=== PATIENT | female | born 1960 | race Caucasian/White ===

== ENCOUNTER 2019-03-20 12:43 | Emergency (ER) | payer OTHER ==
[~2019-03-20] VITALS: Wt 102.0 kg
[2019-03-20] MEDS ORDERED: SOD CHLORIDE 0.9% 1,000 ML IV STA (13:30)
[2019-03-20] MEDS ORDERED: ONDANSETRON 4 MG INJ IV STA (13:30)
--- NOTE | 2019-03-20 14:09 | ERD ---
ER Documentation Chief Complaint Chief Complaint AP WITH VOMITING X 25 DAYS, INTERMITTENT HPI 59-year-old female with a history of diabetes and hypertension presenting with intermittent cramping abdominal pain that has been going on for about 1 month with associated nonbloody and nonbilious vomiting as well as nonbloody diarrhea. Her symptoms are intermittent, unable to quantify. No associated fevers or chills. Currently she is denying any pain. She denies any dysuria, chest pain, shortness of breath. She is currently living in a homeless half-way. Once she moved into the [facility] [place] about 1 month ago is when her symptoms started. She does not think anyone else has similar symptoms. ROS All systems reviewed and are negative except as per history of present illness. Medications Home Meds Reported Medications Benazepril-Hydrochlorothiazide (Benazepril-Hydrochlorothiazide) 20-25 Mg Tablet, 1 TAB PO DAILY, #30 TAB 03/20/19 Lorazepam* (Lorazepam*) 1 Mg Tablet, 1 MG PO BID PRN for ANXIETY, #30 TAB 03/20/19 Escitalopram Oxalate* (Escitalopram Oxalate*) 20 Mg Tablet, 20 MG PO DAILY, #30 TAB 03/20/19 Atorvastatin* (Atorvastatin*) 40 Mg Tablet, 40 MG PO QHS, #30 TAB 03/20/19 Hydroxyzine Hcl* (Atarax*) 50 Mg Tab, 50 MG PO TID, TAB 03/20/19 Hydroxyzine Hcl* (Atarax*) 50 Mg Tab, 50 MG PO NEEDED PRN for ITCHING, TAB 03/20/19 Trazodone Hcl* (Trazodone Hcl*) 50 Mg Tablet, 50 MG PO QHS, #30 TAB 03/20/19 Acetaminophen* (Acetaminophen*) 325 Mg Tablet, 65 MG PO NEEDED PRN for PAIN AND OR ELEVATED TEMP, #30 TAB 03/20/19 Aspirin* (Aspirin* EC) 81 Mg Tablet.dr, 81 MG PO DAILY, TAB 03/20/19 Glipizide* (Glipizide*) 5 Mg Tablet, 5 MG PO AC BREAKFAST, TAB 03/20/19 Amlodipine Besylate* (Amlodipine Besylate*) 10 Mg Tablet, 10 MG PO DAILY, #30 TAB 03/20/19 Metformin Hcl* (Metformin Hcl*) 1,000 Mg Tablet, 1000 MG PO WITH BREAKFAST DINNE, #60 TAB 03/20/19 [place]-3 Fatty Acids/Fish Oil (Fish Oil 1,000 mg Capsule) 1 Each Capsule, 1 EACH PO DAILY, CAP 03/20/19 Allergies Allergies: Coded Allergies: Penicillins (Verified Allergy, Unknown, 03/20/19) ibuprofen (Verified Allergy, Unknown, 03/20/19) mushroom (Verified Allergy, Unknown, 03/20/19) PMhx/Soc History of Surgery: Yes (Hysterectomy) Hx Cardiac Disorders: Yes (Hypertension) Hx Psychiatric Problems: Yes (Anxiety) Hx Miscellaneous Medical Probl: Yes (Diabetes) Hx Alcohol Use: No Hx Substance Use: No Hx Tobacco Use: No FmHx Family History: No coronary disease Physical Exam Vitals Vital Signs Date Temp Pulse Resp B/P (MAP) Pulse Ox O2 O2 Flow FiO2 Time Delivery Rate 03/20/19 99.0 100 18 161/86 99 12:46 (111) Physical Exam Const: No acute distress Head: Atraumatic Eyes: Normal Conjunctiva ENT: Somewhat dry mucous membranes. Normal External Ears, Nose and Mouth. Neck: Full range of motion. No meningismus. Resp: Clear to auscultation bilaterally Cardio: Regular rate and rhythm, no murmurs Abd: Soft, non tender, non distended. Normal bowel sounds. No masses. Skin: No petechiae or rashes Back: No midline or flank tenderness Ext: No cyanosis, or edema Neur: Awake and alert Psych: Normal Mood and Affect Result Diagram: 03/20/19 1349 03/20/19 1349 Results 24 hrs Laboratory Tests Test 03/20/19 13:49 White Blood Count 10.7 10^3/ul Red Blood Count 4.60 10^6/ul Hemoglobin 12.5 g/dl Hematocrit 40.0 % Mean Corpuscular Volume 87.0 fl Mean Corpuscular Hemoglobin 27.2 pg Mean Corpuscular Hemoglobin Concent 31.3 g/dl Red Cell Distribution Width 15.0 % Platelet Count 413 10^3/UL Mean Platelet Volume 10.0 fl Immature Granulocytes % 0.500 % Neutrophils % 61.2 % Lymphocytes % 29.2 % Monocytes % 7.6 % Eosinophils % 0.8 % Basophils % 0.7 % Nucleated Red Blood Cells % 0.0 /100WBC Immature Granulocytes # 0.050 10^3/ul Neutrophils # 6.6 10^3/ul Lymphocytes # 3.1 10^3/ul Monocytes # 0.8 10^3/ul Eosinophils # 0.1 10^3/ul Basophils # 0.1 10^3/ul Nucleated Red Blood Cells # 0.0 10^3/ul Urine Color YELLOW Urine Clarity SLIGHTLY CLOUDY Urine pH 5.0 Urine Specific [place] 1.027 Urine Ketones NEGATIVE mg/dL Urine Nitrite NEGATIVE mg/dL Urine Bilirubin NEGATIVE mg/dL Urine Urobilinogen 1+ mg/dL Urine Leukocyte Esterase TRACE Pro/ul Urine Microscopic RBC 2 /HPF Urine Microscopic WBC 11 /HPF Urine Squamous Epithelial Cells FEW /HPF Urine Bacteria FEW /HPF Urine Mucus FEW /HPF Urine Hemoglobin NEGATIVE mg/dL Urine Glucose 2+ mg/dL Urine Total Protein NEGATIVE mg/dl Sodium Level 141 mmol/L Potassium Level 3.2 mmol/L Chloride Level 97 mmol/L Carbon Dioxide Level 30 mmol/L Anion Gap 14 Blood Urea Nitrogen 22 mg/dl Creatinine 1.09 mg/dl Est Glomerular Filtrat Rate mL/min 51 mL/min Glucose Level 285 mg/dl Calcium Level 9.2 mg/dl Total Bilirubin 0.4 mg/dl Direct Bilirubin 0.00 mg/dl Indirect Bilirubin 0.4 mg/dl Aspartate Amino Transf (AST/SGOT) 19 IU/L Alanine Aminotransferase (ALT/SGPT) 19 IU/L Alkaline Phosphatase 115 IU/L Total Protein 7.8 g/dl Albumin 4.4 g/dl Globulin 3.40 g/dl Albumin/Globulin Ratio 1.29 Lipase 196 U/L Current Medications Medications Dose Sig/Jennifer Start Time Status Last (Trade) Ordered Route PRN Stop Time Admin Dose Reason Admin Sodium 1,000 ml @ Q1H STAT 03/20/19 DC 03/20/19 Chloride 1,000 mls/hr IV 13:30 14:16 03/20/19 14:29 Ondansetron 4 mg ONCE STAT 03/20/19 DC 03/20/19 HCl (Zofran IV 13:30 14:16 Inj) 03/20/19 13:33 Potassium 40 meq ONCE STAT 03/20/19 DC 03/20/19 Chloride PO 14:42 15:05 (Klor-Con 20) 03/20/19 14:43 Magnesium 50 ml @ 25 ONCE ONCE 03/20/19 03/20/19 Sulfate mls/hr IVPB 15:00 15:01 03/20/19 16:59 Potassium 100 ml @ ONCE ONCE 03/20/19 03/20/19 Chloride 50 mls/hr IVPB 15:00 15:43 03/20/19 16:59 Procedures/MDM EMERGENT LABS AND DIAGNOSTIC STUDIES: Lab Results above were reviewed and interpreted by me. CBC: no anemia or evidence of infection CMP: Hypokalemia with mild BUN and creatinine elevation, likely secondary to dehydration. Hyperglycemic without evidence of diabetic ketoacidosis. No evidence of liver disease, or biliary obstruction Lipase: no evidence of pancreatitis UA: no evidence of infection Initial Nursing notes reviewed. Previous Medical Records requested via the Electronic Health Record. EMERGENCY DEPARTMENT COURSE / MEDICAL DECISION MAKING: Patient is presenting with intermittent vomiting and diarrhea for about 1 month with intermittent abdominal pain. She is afebrile with no significant vital sign abnormalities. Differential includes but is not limited to infectious enterocolitis versus irritable bowel syndrome, especially given her history of anxiety and her current living situation. She was initially treated with IV fluids and antiemetics. Labs showed evidence of hypokalemia, likely secondary to her vomiting and diarrhea. She was treated with oral and IV potassium as well as IV magnesium in the setting of hypokalemia. Patient has remained hemodynamically stable. She is tolerating fluids by mouth. I feel the patient is stable for discharge at this time with continued outpatient follow-up. I offered to send stool studies, however the patient was unable to provide a stool sample. At this time I have a low suspicion for bacterial diarrhea. No evidence of acute surgical abdomen. Patient will be discharged with antiemetics and strict return precautions. Patient's blood pressure was elevated (>120/80) but appears stable without evidence of hypertensive emergency or urgency. The patient was counseled about the risks of hypertension and urged to pursue outpatient monitoring and therapy within a week with their primary care physician. Departure Diagnosis: Primary Impression: Abdominal cramps Additional Impressions: Vomiting and diarrhea Hypokalemia Dehydration Condition: Stable EKJESUS RENE MD March 20, 2019 14:09
[2019-03-20] MEDS ORDERED: POTASSIUM CHLORIDE (SR) 20 MEQ TAB PO STA (14:42)
[2019-03-20] MEDS ORDERED: MAGNESIUM SULFATE 2 GM/50 ML 50 ML IVPB ONE (15:00)
[2019-03-20] MEDS ORDERED: POTASSIUM CHLORIDE 100 ML IVPB ONE (15:00)
[2019-03-20] MEDS ORDERED: AMLO-147 PO (15:27)
[2019-03-20] MEDS ORDERED: METF100010 PO (15:27)
[2019-03-20] MEDS ORDERED: OMEG-135 PO (15:27)
[2019-03-20] MEDS ORDERED: GLIP5TAB13 PO (15:28)
[2019-03-20] MEDS ORDERED: ASPI-817 PO (15:28)
[2019-03-20] MEDS ORDERED: ACET325T45 PO (15:29)
[2019-03-20] MEDS ORDERED: TRAZ-111 PO (15:30)
[2019-03-20] MEDS ORDERED: HYDR-845 PO ×2 (15:31)
[2019-03-20] MEDS ORDERED: ATOR40TA68 PO (15:32)
[2019-03-20] MEDS ORDERED: ESCI20TA38 PO (15:33)
[2019-03-20] MEDS ORDERED: LORA1TAB PO (15:33)
[2019-03-20] MEDS ORDERED: BENA1TAB14 PO (15:34)
[2019-03-20] MEDS ORDERED: ONDA4TAB14 PO (17:27)
[2019-03-20 17:53] VITALS: BP 133/78; PULSE 89; RESP 16
== END 2019-03-20 17:57 | disposition home or self-care (01) ==
LOC: E/R 12:43
DX: R10.9 Unspecified abdominal pain (principal); I10 Essential (primary) hypertension; E11.9 Type 2 diabetes mellitus without complications; E87.6 Hypokalemia; E86.0 Dehydration; Z79.82 Long term (current) use of aspirin; Z79.84 Long term (current) use of oral hypoglycemic drugs
CPT/HCPCS: 36415; 80053; 81001; 83690; 85025; 96374; 96375; J2405; J3475; J3480; J7030; Z7502; Z7610